=== PATIENT | male | born 1950 | race African-American/Black ===

== ENCOUNTER 2018-02-12 15:36 | Inpatient (IN) ==
[2018-02-12 17:00] LABS: Baso % (Auto) 0.5 % (0.0-2.0); Eos # (Auto) 0.1 th/mm3 (0.0-0.4); Eos % (Auto) 1.5 % (0.0-4.0); Hematocrit 46.1 % (39.0-51.0); Hemoglobin 15.5 gm/dL (13.0-17.0); Lymph # (Auto) 1.6 th/mm3 (1.0-4.8); Lymph % (Auto) 25.9 % (9.0-44.0); Mean Corpuscular HGB Conc 33.6 % (32.0-36.0); Mean Corpuscular Hemoglobin 31.2 pg (27.0-34.0); Mean Corpuscular Volume 92.9 fL (80.0-100.0); Mean Platelet Volume 8.2 fL (7.0-11.0); Mono # (Auto) 0.5 th/mm3 (0.0-0.9); Mono % (Auto) 7.8 % (0.0-8.0); Neut # (Auto) 3.9 th/mm3 (1.8-7.7); Neut % (Auto) 64.3 % (16.0-70.0); Platelet Count 242 th/mm3 (150-450); Red Blood Count 4.96 mil/mm3 (4.50-5.90); Red Cell Distribution Width 14.5 % (11.6-17.2); White Blood Count 6.1 th/mm3 (4.0-11.0)
[2018-02-12 17:11] LABS: Alanine Aminotransferase 21 U/L (12-78); Albumin 3.7 g/dL (3.4-5.0); Anion Gap 9 meq/L (5-15); Aspartate Aminotransferase 7 U/L (15-37); Blood Urea Nitrogen 14 mg/dL (7-18); Calcium 8.4 mg/dL (8.5-10.1); Carbon Dioxide 25.1 meq/L (21.0-32.0); Chloride 110 meq/L (98-107); Glomerular Filtration Rate 66 mL/min (>89); Glucose,Random 153 mg/dL (74-106); Potassium 3.9 meq/L (3.5-5.1); Sodium 144 meq/L (136-145)
[2018-02-12 17:14] LABS: Alkaline Phosphatase 97 U/L (45-117)
[2018-02-12 17:27] LABS: Creatine Kinase 76 U/L (39-308)
--- NOTE | 2018-02-12 17:39 | ED ---
HPI General Chief Complaint: Dizziness Stated Complaint: Dizzy/Blurred vision Time Seen by Provider: 02/12/18 17:20 Source: patient Mode of arrival: ambulatory Limitations: no limitations History of Present Illness HPI Narrative: The patient is a 67-year-old -[place] male who presents to the emergency department for dizziness. The patient complains of lightheadedness and dizziness that started on Tuesday, has been intermittent and associated with blurry vision. The patient wears glasses, last had his vision checked several months ago. The patient states his symptoms resolved on Tuesday , however, returned today. The patient feels lightheaded, dizzy, with blurry vision. The patient has difficulty focusing, initially thought it was his blood sugars, however, his blood sugars were in the 180s. The patient also feels off balance when he is ambulating. He denies any chest pain, shortness of breath, palpitations, nausea, vomiting, or focal deficits. The patient did have a stroke several months ago in [place] [facility] where his presenting symptom was dizziness. The patient was admitted at that time and subsequently had a loop recorder placed to evaluate for possible atrial fibrillation. Symptoms are moderate. There are no current alleviating factors. MD complaint: dizziness, lightheadedness and difficulty walking Onset (ago): day(s) Timing: waxing/waning Description: lightheadedness, off-balance and difficulty walking History of similar episodes: Yes History of trauma: No Severity: moderate Relieving factors: nothing Exacerbating factors: nothing Associated symptoms: ataxia and vision changes Related Data Home Medications Medication Instructions Recorded Confirmed Lantus U-100 Insulin 16 unit SUB-Q HS 02/12/18 02/12/18 Novolin 70/30 U-100 Insulin 6 unit SUB-Q ACHS 02/12/18 02/12/18 amlodipine 10 mg PO DAILY 02/12/18 02/12/18 aspirin 81 mg PO DAILY 02/12/18 02/12/18 atorvastatin 40 mg PO DAILY 02/12/18 02/12/18 carvedilol 25 mg PO BID 02/12/18 02/12/18 clopidogrel 75 mg PO DAILY 02/12/18 02/12/18 furosemide 40 mg PO DAILY 02/12/18 02/12/18 metformin 1,000 mg PO BID 02/12/18 02/12/18 sildenafil 100 mg PO WEEKLY 02/12/18 02/12/18 Allergies Allergy/AdvReac Type Severity Reaction Status Date / Time No Known Allergies Allergy Unverified 02/08/18 00:18 Review of Systems Except as stated in HPI: all other systems reviewed are negative Constitutional Denies fever(s) Eyes Reports blurry vision ENT Reports headache(s) Cardiovascular Denies chest pain, Denies diaphoresis, Denies rapid heart rate, Denies irregular heart rhythm and Reports lightheadedness Respiratory Denies chest congestion, Denies cough, Denies dyspnea and Denies dyspnea on exertion Gastrointestinal Denies abdominal pain, Denies nausea and Denies vomiting Musculoskeletal Denies muscle weakness Neurologic Denies vertigo, Reports dizziness, Reports headache(s) and Denies loss of vision Endocrine Reports other (History of diabetes on insulin) [facility] Medical History Medical History CHF (congestive heart failure) (Acute) COPD (chronic obstructive pulmonary disease) (Acute) Diabetes (Acute) HTN (hypertension) (Acute) Social History Social History Substance History: No History of Abuse Smoking Status: Unknown if ever smoked How Often Do You Have a Drink Containing Alcohol: 2 to 3 times a week Exam Narrative Exam Narrative: GENERAL: Awake, alert, very pleasant 67-year-old male who appears his stated age and is in no acute respiratory distress. SKIN: Focused skin assessment warm/dry. HEAD: Atraumatic. Normocephalic. EYES: Pupils equal and round. 4 mm bilateral and reactive. EOMs are intact. Patient is able to see fingers at a distance of 2 feet without difficulty. ENT: No nasal bleeding or discharge. Mucous membranes pink and moist. NECK: Trachea midline. No JVD. CARDIOVASCULAR: Regular rate and rhythm. No murmur appreciated. RESPIRATORY: No accessory muscle use. Clear to auscultation. Breath sounds equal bilaterally. GASTROINTESTINAL: Abdomen soft, non-tender, nondistended. Hepatic and splenic margins not palpable. MUSCULOSKELETAL: No obvious deformities. No clubbing. No cyanosis. No edema. NEUROLOGICAL: Awake and alert. No obvious cranial nerve deficits. Motor grossly within normal limits. Normal speech. No drift of the upper or lower extremities. Sensation is symmetric, legs, and face bilaterally. Finger to nose is normal. Heel to landon is normal. Patient is oriented 4 and follows commands without difficulty. EOMs are intact. Patient was ambulated, slightly leaning to the right. PSYCHIATRIC: Appropriate mood and affect; insight and judgment normal. Course Reevaluation(s) Reevaluation #1: The on-call medical service was paged for admission. I discussed the patient with Dr. Tucker who agrees with admission. Time: 19:05 Initial Documented Vital Signs Temperature 97.9 F 02/12/18 16:00 Pulse Rate 78 02/12/18 16:00 Respiratory Rate 17 02/12/18 16:00 Blood Pressure 180/84 H 02/12/18 16:00 Pulse Oximetry 98 02/12/18 16:00 Last Documented Vital Signs Temperature 97.9 F 02/12/18 16:00 Pulse Rate 67 02/12/18 19:48 Respiratory Rate 18 02/12/18 19:48 Blood Pressure 183/88 H 02/12/18 19:48 Pulse Oximetry 100 02/12/18 19:48 Medical Decision Making MDM Narrative Medical decision making narrative: IV was established, labs are drawn and sent, and the patient was placed on cardiac telemetry monitoring and continuous pulse oximetry monitoring. EKG was ordered and interpreted. Orthostatic vital signs were obtained. CT the brain and MRI of the brain were obtained. The patient's blood sugar was 181 per his report upon arrival. The patient had similar symptoms several months ago with dizziness and was ultimately diagnosed with a stroke. The patient once again has dizziness with blurry vision, has been intermittent since Tuesday. MRI is positive for cerebellar infarct, therefore, MRA of the head and carotids was obtained. CT the brain reveals evolving infarct, no hemorrhage. Therefore, patient was administered aspirin 325 mg orally. The patient will be admitted to the on-call medical service. Differential Diagnosis Differential Diagnosis: Differential diagnosis includes CVA, TIA, intracranial hemorrhage, complicated migraine, atypical seizure, hyperglycemia arrhythmia, orthostatic hypotension, symptomatic anemia. Lab Data Lab results reviewed: Yes I reviewed the patient's lab results. Lab results narrative: Mild elevation creatinine 1.31 Result diagrams: 02/12/18 16:20 02/12/18 16:20 Lab Results 02/12/18 02/12/18 02/12/18 Range/Units 16:20 16:20 16:20 WBC 6.1 (4.0-11.0) th/mm3 RBC 4.96 (4.50-5.90) mil/mm3 Hgb 15.5 (13.0-17.0) gm/dL Hct 46.1 (39.0-51.0) % MCV 92.9 (80.0-100.0) fL MCH 31.2 (27.0-34.0) pg MCHC 33.6 (32.0-36.0) % RDW 14.5 (11.6-17.2) % Plt Count 242 (150-450) th/mm3 MPV 8.2 (7.0-11.0) fL Neut % (Auto) 64.3 (16.0-70.0) % Lymph % (Auto) 25.9 (9.0-44.0) % Dewitt % (Auto) 7.8 (0.0-8.0) % Eos % (Auto) 1.5 (0.0-4.0) % Baso % (Auto) 0.5 (0.0-2.0) % Neut # (Auto) 3.9 (1.8-7.7) th/mm3 Lymph # (Auto) 1.6 (1.0-4.8) th/mm3 Dewitt # (Auto) 0.5 (0.0-0.9) th/mm3 Eos # (Auto) 0.1 (0.0-0.4) th/mm3 Baso # (Auto) 0.0 (0.0-0.2) th/mm3 WBC Differential . Differential Comment Auto diff final PT (9.8-11.6) sec INR Ratio Sodium 144 (136-145) meq/L Potassium 3.9 (3.5-5.1) meq/L Chloride 110 H (98-107) meq/L Carbon Dioxide 25.1 (21.0-32.0) meq/L Anion Gap 9 (5-15) meq/L BUN 14 (7-18) mg/dL Creatinine 1.31 H (0.60-1.30) mg/dL Estimated GFR 66 L (>89) mL/min Random Glucose 153 H (74-106) mg/dL Lactic Acid 1.7 (0.4-2.0) mmol/L Calcium 8.4 L (8.5-10.1) mg/dL Total Bilirubin 0.9 (0.2-1.0) mg/dL AST 7 L (15-37) U/L ALT 21 (12-78) U/L Alkaline Phosphatase 97 (45-117) U/L Ammonia (11-32) mcmol/L Total Creatine Kinase 76 (39-308) U/L Troponin I Less than 0.02 L (0.02-0.05) ng/mL Total Protein 7.0 (6.4-8.2) g/dL Albumin 3.7 (3.4-5.0) g/dL Urine Color (Yellw/Straw) Urine Clarity (Clear) Urine pH (5.0-8.5) Ur Specific Delmar (1.002-1.035) Urine Protein (Neg-Trace) mg/dL Urine Glucose (UA) (Negative) mg/dL Urine Ketones (Negative) mg/dL Urine Occult Blood (Negative) Urine Nitrate (Negative) Urine Bilirubin (Negative) Urine Urobilinogen (Less than 2) mg/dL Ur Leukocyte Esterase (Negative) Urine RBC (0-3) /hpf Urine WBC (0-5) /hpf Hyaline Casts (0-3) /lpf Urine Mucus (Occasional) /lpf Micro UA Comment Urine Culture Comments 02/12/18 02/12/18 02/12/18 Range/Units 16:20 16:20 18:45 WBC (4.0-11.0) th/mm3 RBC (4.50-5.90) mil/mm3 Hgb (13.0-17.0) gm/dL Hct (39.0-51.0) % MCV (80.0-100.0) fL MCH (27.0-34.0) pg MCHC (32.0-36.0) % RDW (11.6-17.2) % Plt Count (150-450) th/mm3 MPV (7.0-11.0) fL Neut % (Auto) (16.0-70.0) % Lymph % (Auto) (9.0-44.0) % Dewitt % (Auto) (0.0-8.0) % Eos % (Auto) (0.0-4.0) % Baso % (Auto) (0.0-2.0) % Neut # (Auto) (1.8-7.7) th/mm3 Lymph # (Auto) (1.0-4.8) th/mm3 Dewitt # (Auto) (0.0-0.9) th/mm3 Eos # (Auto) (0.0-0.4) th/mm3 Baso # (Auto) (0.0-0.2) th/mm3 WBC Differential Differential Comment PT 10.7 (9.8-11.6) sec INR 1.1 Ratio Sodium (136-145) meq/L Potassium (3.5-5.1) meq/L Chloride (98-107) meq/L Carbon Dioxide (21.0-32.0) meq/L Anion Gap (5-15) meq/L BUN (7-18) mg/dL Creatinine (0.60-1.30) mg/dL Estimated GFR (>89) mL/min Random Glucose (74-106) mg/dL Lactic Acid (0.4-2.0) mmol/L Calcium (8.5-10.1) mg/dL Total Bilirubin (0.2-1.0) mg/dL AST (15-37) U/L ALT (12-78) U/L Alkaline Phosphatase (45-117) U/L Ammonia 23 (11-32) mcmol/L Total Creatine Kinase (39-308) U/L Troponin I (0.02-0.05) ng/mL Total Protein (6.4-8.2) g/dL Albumin (3.4-5.0) g/dL Urine Color Radha (Yellw/Straw) Urine Clarity Hazy H (Clear) Urine pH 5.0 (5.0-8.5) Ur Specific Delmar 1.031 (1.002-1.035) Urine Protein 100 H (Neg-Trace) mg/dL Urine Glucose (UA) Negative (Negative) mg/dL Urine Ketones Negative (Negative) mg/dL Urine Occult Blood Small H (Negative) Urine Nitrate Negative (Negative) Urine Bilirubin Negative (Negative) Urine Urobilinogen 4 or greater (Less than 2) mg/dL Ur Leukocyte Esterase Negative (Negative) Urine RBC Less than 1 (0-3) /hpf Urine WBC 1 (0-5) /hpf Hyaline Casts 1 (0-3) /lpf Urine Mucus Few H (Occasional) /lpf Micro UA Comment Culture not ind Urine Culture Comments Culture not ind Imaging Data Radiologist's impression: ITS Impressions Head CT 02/12/18 17:30 CONCLUSION: 1. Multiple evolving infarcts as above without hemorrhage or significant mass effect. Head MRI 02/12/18 17:30 CONCLUSION: 1. Acute infarcts predominantly in the posterior circulation on the left side measuring up to about 4 cm in the left cerebellar hemisphere and 5 centimeters in the left occipital lobe with additional small punctate infarcts in the left periventricular deep white matter, posterior aspect of corpus callosum and right cerebellar hemisphere. Head MRA 02/12/18 18:13 CONCLUSION: 1. No flow identified in the distal right vertebral. 2. Atherosclerotic irregularity with diminished flow in the basilar artery and at least moderate stenosis of both posterior cerebral arteries. 3. Atherosclerotic changes suspected in the distal middle cerebral arteries bilaterally with mild to moderate stenosis suspected on the right and at least moderate stenosis on the left. No discrete aneurysm identified. Neck MRA 02/12/18 18:13 CONCLUSION: 1. Probable high-grade stenosis distal left vertebral artery. No flow seen in the distal right vertebral artery proximal to the basilar artery. Diminished flow in the basilar artery. Both carotid arteries are patent. Percent stenosis is calculated using the diameter of the stenotic region over the diameter of the normal distal internal carotid artery Discharge Plan Discharge Disposition Patient Disposition: 30 Still Patient Discharge Condition Condition: Stable Discharge Details Discharge Problem: Cerebrovascular accident, Vertebral basilar insufficiency Physicians Team ED Provider: Lars Coyne Primary Care Provider: [facility]ician [place] Attending Provider: Taylor Tucker Status ED Status: Admitted Patient
--- NOTE | 2018-02-12 18:21 | MR ---
EXAM DATE: 02/12/2018 6:12 PM EDT AGE/SEX: 67 years / Male INDICATIONS: Dizziness. Blurred vision. CLINICAL DATA: This is the patient's initial encounter. Patient reports that signs and symptoms have been present for 1 day and indicates a pain score of 0/10. MEDICAL/SURGICAL HISTORY: Hypertension. Diabetes mellitus type II. Chronic obstructive pulmon yusra disease. CHF. Total knee replacement, left. Total knee replacement, right. Loop recorder. COMPARISON: No prior exams available for comparison. TECHNIQUE: Multiplanar, multisequence examination of the brain was performed without contrast. FINDINGS: Multiple infarcts are present, predominantly in the posterior circulation on the left side. There is a left cerebellar hemispheric infarct which measures up to about 4 cm in maximal diameter. There is a left occipital lobe infarct measuring up to about 5 cm in maximal diameter. Also punctate infarct po sterior aspect of corpus callosum and in the left periventricular white matter. Small lacunar infarct right cerebellar hemisphere. Remote lacunar infarct right cerebellar hemisphere. Currently no mass e ffect or midline shift. No hydrocephalus. No abnormal extra-axial fluid collections present. CONCLUSION: 1. Acute infarcts predominantly in the posterior circulation on the left side measuring up to about 4 cm in the left cerebellar hemisphere and 5 centimeters in the left occipital lobe with additional s mall punctate infarcts in the left periventricular deep white matter, posterior aspect of corpus call osum and right cerebellar hemisphere. Electronically signed by: Gerardo Modi MD 02/12/2018 6:20 PM EDT
[2018-02-12] MEDS ORDERED: Gadodiamide PF Inj 287 MG/ML 20 ML Syringe (for RAD MRI) IVCONTRAST ONE (18:33)
--- NOTE | 2018-02-12 18:49 | CT ---
EXAM DATE: 02/12/2018 6:39 PM EDT AGE/SEX: 67 years / Male INDICATIONS: Dizziness with prior history of stroke. CLINICAL DATA: This is the patient's initial encounter. Patient reports that signs and symptoms have been present for 1 day and indicates a pain score of 0/10. MEDICAL/SURGICAL HISTORY: Cerebrovascular disease. Chronic obstructive pulmonary disease. Congest karo heart failure. Diabetes, Hypertension None. RADIATION DOSE: 51.02 CTDI (mGy) COMPARISON: No prior exams available for comparison. TECHNIQUE: CT of the head without contrast. Using automated exposure control and adjustment of the mA and/or kV according to patient size, radiation dose was kept as low as reasonably achievable to ob tain optimal diagnostic quality images. DICOM format image data is available electronically for revi ew and comparison. FINDINGS: There are evolving infarcts in the left occipital lobe measuring about 5 cm in diameter and left cere bellar hemisphere measuring up to diameter with additional punctate infarcts in the right cerebellar hemisphere and left periventricular white matter. Findings better visualized on recent MRI. There is no associated hemorrhage or significant mass effect. No hydrocephalus. CONCLUSION: 1. Multiple evolving infarcts as above without hemorrhage or significant mass effect. Electronically signed by: Gerardo Modi MD 02/12/2018 6:48 PM EDT
--- NOTE | 2018-02-12 19:01 | MR ---
EXAM DATE: 02/12/2018 6:54 PM EDT AGE/SEX: 67 years / Male INDICATIONS: Dizziness. CLINICAL DATA: This is the patient's initial encounter. Patient reports that signs and symptoms have been present for 2 days and indicates a pain score of 0/10. MEDICAL/SURGICAL HISTORY: Chronic obstructive pulmonary disease. Diabetes mellitus type II. H ypertension. loop recorder Total knee replacement, left. Total knee replacement, right. COMPARISON: [facility], MRA HEAD W/O CONTRAST, 02/12/2018. . TECHNIQUE: 20cc ml Omniscan (gadodiamide) contrast infused MRA (single exam dose) of the extracrani al circulation was performed using a neurovascular coil. Postprocessing was performed, including rot ating sub-volume maximum intensity projections of each carotid artery, rotating full-volume maximum i ntensity projections of both carotid arteries, sagittal and coronal sliding thin-slab reformations of each carotid artery, and left oblique sliding thin-slab reformation through the aortic arch to inclu de the origin of the arch branch vessels. FINDINGS: The great vessel origins are patent. Both common carotid arteries and both internal carotid arteries are patent. There appears to be a focal high-grade stenosis in the distal left vertebral artery the d istal right vertebral artery appears occluded. There is some flow noted in the basilar artery. CONCLUSION: 1. Probable high-grade stenosis distal left vertebral artery. No flow seen in the distal right verte bral artery proximal to the basilar artery. Diminished flow in the basilar artery. Both carotid arter ies are patent. Percent stenosis is calculated using the diameter of the stenotic region over the diameter of the nor mal distal internal carotid artery Electronically signed by: Gerardo Modi MD 02/12/2018 7:00 PM EDT
[2018-02-12] MEDS ORDERED: Aspirin 325 MG Tablet PO ONE (19:02)
[2018-02-12 19:04] LABS: INR 1.1 Ratio; Prothrombin Time 10.7 sec (9.8-11.6)
--- NOTE | 2018-02-12 19:04 | MR ---
EXAM DATE: 02/12/2018 6:50 PM EDT AGE/SEX: 67 years / Male INDICATIONS: Dizziness. CLINICAL DATA: This is the patient's initial encounter. Patient reports that signs and symptoms have been present for 2 days and indicates a pain score of 0/10. MEDICAL/SURGICAL HISTORY: Hypertension. Diabetes mellitus type II. Chronic obstructive pulmon yusra disease. CHF Total knee replacement, left. Total knee replacement, right. COMPARISON: No prior exams available for comparison. TECHNIQUE: 3D [id number] MRA was performed. Source images, multiplanar STS MIP, and 3D volum e MIP reconstructions were reviewed. FINDINGS: No flow is seen in the distal right vertebral artery. Left vertebral artery forms the basilar artery which demonstrates some atherosclerotic irregularity. There is diminished flow in both posterior cere bral arteries with at least moderate stenosis suspected. There is good flow within a single anterior cerebral artery. There is atherosclerotic irregularity of both distal middle cerebral arteries with at least moderate stenosis suspected. This is slightly wor se on the left side. Distal internal carotid arteries demonstrate mild atherosclerotic irregularity CONCLUSION: 1. No flow identified in the distal right vertebral. 2. Atherosclerotic irregularity with diminished flow in the basilar artery and at least moderate anca nosis of both posterior cerebral arteries. 3. Atherosclerotic changes suspected in the distal middle cerebral arteries bilaterally with mild to moderate stenosis suspected on the right and at least moderate stenosis on the left. No discrete ane urysm identified. Electronically signed by: Gerardo Modi MD 02/12/2018 7:03 PM EDT
[2018-02-12 19:46] LABS: Bilirubin,Urine Negative (Negative); Clarity,Urine Hazy (Clear); Color,Urine Amber (Yellw/Straw); Glucose,Urine (UA) Negative (Negative); Hyaline Casts,Urine 1 /lpf (0-3); Leukocyte Esterase,Urine Negative (Negative); Mucus,Urine Few /lpf (Occasional); Nitrite,Urine Negative (Negative); Specific Gravity,Urine 1.031 (1.002-1.035); Urobilinogen,Urine 4 or Greater mg/dL (Less than 2)
[2018-02-12] MEDS ORDERED: Dextrose 50% in Water 50 ML Vial IV.PUSH PRN (22:06)
[2018-02-12] MEDS ORDERED: Heparin - SQ 10,000 UNITS/ML Vial SQ SCH (22:15)
--- NOTE | 2018-02-12 22:39 | P.HP ---
History of Present Illness Service: [facility] Primary Care Physician: Physician [facility] Chief Complaint: Blurry vision History of Present Illness: 67-year-old male with a past medical history significant for previous CVA, hypertension, hyperlipidemia and diabetes mellitus presents to the emergency department for the evaluation of confusion and visual problems. The patient reports that yesterday he became confused having difficulty with his short-term memory. He also reports visual acuity issues where everything was blurry and bright. The patient also reports dizziness. He states his symptoms persisted to today and he came to the emergency department for further evaluation. The patient reports his visual symptoms have resolved at this time. He denies any chest pain or shortness of breath. No abdominal pain. No nausea/vomiting/ diarrhea. Walks to the right. No fevers/chills. Inpatient Certification: I certify that the inpatient services were ordered in accordance with Medicare regulations governing the order. This includes certification that hospital inpatient services are reasonable and necessary and in the case of services not specified as inpatient-only under 42 CFR 419.22(n), that they are appropriately provided as inpatient services in accordance to with the 2-midnight benchmark under 43 CFR 412.3(e) Estimated Total Length of Stay (Days): 4 Plans for Post Hospital Care: Not yet determined Review of Systems All other systems reviewed negative except as stated in HPI [facility] - History History Provided By: Patient - Medical History Medical History: Medical History (Last Updated 02/12/18 @ 22:31 by Taylor Tucker MD) HLD (hyperlipidemia) Status post placement of implantable loop recorder CHF (congestive heart failure) COPD (chronic obstructive pulmonary disease) Diabetes HTN (hypertension) - Surgical History Surgical History: Surgical History (Last Updated 02/12/18 @ 22:31 by Taylor Tucker MD) H/O knee surgery - Family History Family History: Family History (Last Updated 02/12/18 @ 22:32 by Taylor Tucker MD) Other Diabetes - Tobacco History Second Hand Smoke Exposure: No Tobacco Use In Past 30 Days: No Smoking Status: Unknown if ever smoked - Alcohol History How Often Do You Have a Drink Containing Alcohol: 2 to 3 times a week - Substance Use History Substance History: No History of Abuse - Immunization History Tetanus Immunization: Unsure Medications and Allergies Active Medications: Active Medications Amlodipine Besylate (Norvasc) 10 mg PO DAILY [facility] Aspirin (Aspirin) 325 mg PO DAILY [facility] Atorvastatin Calcium (Lipitor) 40 mg PO DAILY [facility] Clopidogrel Bisulfate (Plavix) 75 mg PO DAILY [facility] Dextrose (D50w Vial) 50 ml IV.PUSH UNSCH PRN PRN Reason: PER HYPOGLYCEMIA PROTOCOL Furosemide (Lasix) 40 mg PO DAILY [facility] Glucagon (Glucagon Inj) 1 mg OTHER UNSCH PRN PRN Reason: for Hypoglycemia Protocol Heparin Sodium (Porcine) (Heparin Inj) 5,000 units SQ Q12H [facility] Sodium Chloride (Ns Inj) 1,000 mls @ 70 mls/hr IV.CONT .[id number] [facility] Insulin Aspart (Novolog Insulin Suppl Scale Inj) 0 unit SQ ACHS [facility]; Protocol Non-Formulary Medication (Carvedilol [Carvedilol]) 25 mg PO BID [facility] Sodium Chloride (Ns Flush) 2 ml IV.FLUSH PRN PRN PRN Reason: FLUSH AFTER USING IV ACCESS Sodium Chloride (Ns Flush) 2 ml IV.FLUSH BID [facility] Sodium Chloride (Ns Flush) 2 ml IV.FLUSH PRN PRN PRN Reason: FLUSH AFTER USING IV ACCESS Allergies Allergy/AdvReac Type Severity Reaction Status Date / Time No Known Allergies Allergy Unverified 02/08/18 00:18 Home Medications Medication Instructions Recorded Confirmed Type Lantus U-100 Insulin 16 unit SUB-Q HS 02/12/18 02/12/18 History Novolin 70/30 U-100 Insulin 6 unit SUB-Q ACHS 02/12/18 02/12/18 History amlodipine 10 mg PO DAILY 02/12/18 02/12/18 History aspirin 81 mg PO DAILY 02/12/18 02/12/18 History atorvastatin 40 mg PO DAILY 02/12/18 02/12/18 History carvedilol 25 mg PO BID 02/12/18 02/12/18 History clopidogrel 75 mg PO DAILY 02/12/18 02/12/18 History furosemide 40 mg PO DAILY 02/12/18 02/12/18 History metformin 1,000 mg PO BID 02/12/18 02/12/18 History sildenafil 100 mg PO WEEKLY 02/12/18 02/12/18 History Exam Vital signs: Vital Signs 02/12/18 16:00 02/12/18 16:05 02/12/18 18:57 Temperature 97.9 F Pulse Rate 78 73 78 Respiratory Rate 17 18 Blood Pressure 180/84 H 169/87 H Pulse Oximetry 98 100 02/12/18 19:48 Temperature Pulse Rate 67 Respiratory Rate 18 Blood Pressure 183/88 H Pulse Oximetry 100 Intake & Output 02/12/18 02/12/18 02/13/18 06:59 18:59 06:59 Weight 115.666 kg Narrative: Gen.: No acute distress Head: Normocephalic. Atraumatic. EENT: Pupils equal round and reactive to light. Nose without drainage. Airway intact. Throat without injection. Cardiovascular: Regular rate and rhythm. No murmurs, rubs or gallops. Respiratory: Lungs clear to auscultation bilaterally. No wheezes or rhonchi. Abdomen: Soft, nontender, nondistended. No peritoneal signs. Musculoskeletal: No gross deformities. No edema. Skin: No obvious rashes or erythema. Neuro: Cranial nerves II through XII intact. Patient denies any blurry vision at this time. 5/5 strength in all extremities. Psych: Appropriate mood and affect Results - Labs CBC & Chem 7: 02/12/18 16:20 02/12/18 16:20 Labs: Laboratory Results - last 24 hr 02/12/18 02/12/18 02/12/18 16:20 16:20 16:20 WBC 6.1 RBC 4.96 Hgb 15.5 Hct 46.1 MCV 92.9 MCH 31.2 MCHC 33.6 RDW 14.5 Plt Count 242 MPV 8.2 Neut % (Auto) 64.3 Lymph % (Auto) 25.9 [place] % (Auto) 7.8 Eos % (Auto) 1.5 Baso % (Auto) 0.5 Neut # (Auto) 3.9 Lymph # (Auto) 1.6 [place] # (Auto) 0.5 Eos # (Auto) 0.1 Baso # (Auto) 0.0 WBC Differential . Differential Comment Auto diff final PT INR Sodium 144 Potassium 3.9 Chloride 110 H Carbon Dioxide 25.1 Anion Gap 9 BUN 14 Creatinine 1.31 H Estimated GFR 66 L Random Glucose 153 H Lactic Acid 1.7 Calcium 8.4 L Total Bilirubin 0.9 AST 7 L ALT 21 Alkaline Phosphatase 97 Ammonia Total Creatine Kinase 76 Troponin I Less than 0.02 L Total Protein 7.0 Albumin 3.7 Urine Color Urine Clarity Urine pH Ur Specific [place] Urine Protein Urine Glucose (UA) Urine Ketones Urine Occult Blood Urine Nitrate Urine Bilirubin Urine Urobilinogen Ur Leukocyte Esterase Urine RBC Urine WBC Hyaline Casts Urine Mucus Micro UA Comment Urine Culture Comments 02/12/18 02/12/18 02/12/18 16:20 16:20 18:45 WBC RBC Hgb Hct MCV MCH MCHC RDW Plt Count MPV Neut % (Auto) Lymph % (Auto) [place] % (Auto) Eos % (Auto) Baso % (Auto) Neut # (Auto) Lymph # (Auto) [place] # (Auto) Eos # (Auto) Baso # (Auto) WBC Differential Differential Comment PT 10.7 INR 1.1 Sodium Potassium Chloride Carbon Dioxide Anion Gap BUN Creatinine Estimated GFR Random Glucose Lactic Acid Calcium Total Bilirubin AST ALT Alkaline Phosphatase Ammonia 23 Total Creatine Kinase Troponin I Total Protein Albumin Urine Color Radha Urine Clarity Hazy H Urine pH 5.0 Ur Specific [place] 1.031 Urine Protein 100 H Urine Glucose (UA) Negative Urine Ketones Negative Urine Occult Blood Small H Urine Nitrate Negative Urine Bilirubin Negative Urine Urobilinogen 4 or greater Ur Leukocyte Esterase Negative Urine RBC Less than 1 Urine WBC 1 Hyaline Casts 1 Urine Mucus Few H Micro UA Comment Culture not ind Urine Culture Comments Culture not ind - Imaging Impressions Head CT 02/12/18 17:30 CONCLUSION: 1. Multiple evolving infarcts as above without hemorrhage or significant mass effect. Head MRI 02/12/18 17:30 CONCLUSION: 1. Acute infarcts predominantly in the posterior circulation on the left side measuring up to about 4 cm in the left cerebellar hemisphere and 5 centimeters in the left occipital lobe with additional small punctate infarcts in the left periventricular deep white matter, posterior aspect of corpus callosum and right cerebellar hemisphere. Head MRA 02/12/18 18:13 CONCLUSION: 1. No flow identified in the distal right vertebral. 2. Atherosclerotic irregularity with diminished flow in the basilar artery and at least moderate stenosis of both posterior cerebral arteries. 3. Atherosclerotic changes suspected in the distal middle cerebral arteries bilaterally with mild to moderate stenosis suspected on the right and at least moderate stenosis on the left. No discrete aneurysm identified. Neck MRA 02/12/18 18:13 CONCLUSION: 1. Probable high-grade stenosis distal left vertebral artery. No flow seen in the distal right vertebral artery proximal to the basilar artery. Diminished flow in the basilar artery. Both carotid arteries are patent. Percent stenosis is calculated using the diameter of the stenotic region over the diameter of the normal distal internal carotid artery Caprini VTE Risk Assessment Caprini VTE Risk Assessment: Moderate/High Risk (score >= 2) Neilrini Risk Assessment Model: Point Value = 1 Point Value = 2 Point Value = 3 Point Value = 5 Age 41-60 Minor surgery BMI > 25 kg/m2 Swollen legs Varicose veins or History of unexplained or recurrent spontaneous Oral contraceptives or hormone replacement Sepsis (< 1 month) Serious lung disease, including pneumonia (< 1 month) Abnormal pulmonary function Acute myocardial infarction Congestive heart failure (< 1 month) History of inflammatory bowel disease Medical patient at bed rest Age 61-74 Arthroscopic surgery Major open surgery (> 45 min) Laparoscopic surgery (> 45 min) Malignancy Confined to bed (> 72 hours) Immobilizing plaster cast Central venous access Age >= 75 History of VTE Family history of VTE Factor V Leiden Prothrombin [id number] Lupus anticoagulant Anticardiolipin antibodies Elevated serum homocysteine Heparin-induced thrombocytopenia Other congenital or acquired thrombophilia Stroke (< 1 month) Elective arthroplasty Hip, pelvis, or leg fracture Acute spinal cord injury (< 1 month) Prophylaxis Regimen: Total Risk Factor Score Risk Level Prophylaxis Regimen 0-1 Low Early ambulation 2 Moderate Order ONE of the following: *Sequential Compression Device (SCD) *Heparin 5000 units SQ BID 3-4 Higher Order ONE of the following medications: *Heparin 5000 units SQ TID *Enoxaparin/Lovenox 40 mg SQ daily (WT < 150 kg, CrCl > 30 mL/min) *Enoxaparin/Lovenox 30 mg SQ daily (WT < 150 kg, CrCl > 10-29 mL/min) *Enoxaparin/Lovenox 30 mg SQ BID (WT < 150 kg, CrCl > 30 mL/min) AND/OR *Sequential Compression Device (SCD) 5 or more Highest Order ONE of the following medications: *Heparin 5000 units SQ TID (Preferred with Epidurals) *Enoxaparin/Lovenox 40 mg SQ daily (WT < 150 kg, CrCl > 30 mL/min) *Enoxaparin/Lovenox 30 mg SQ daily (WT < 150 kg, CrCl > 10-29 mL/min) *Enoxaparin/Lovenox 30 mg SQ BID (WT < 150 kg, CrCl > 30 mL/min) AND *Sequential Compression Device (SCD) Assessment and Plan - Plan Assessment/plan: 1. Posterior CVA with history of CVA MRI showed acute infarct in the posterior circulation on the left side and left cerebellar hemisphere and left occipital lobe MRA showed no flow identified in the distal right vertebral artery with atherosclerotic changes Aspirin/Plavix Neurology consulted, appreciate assistance 2. Diabetes mellitus Sliding-scale insulin Monitor blood glucose Resume home long-acting insulin once patient taking p.o. 3. Hypertension/hyperlipidemia Continue home medications FEN N.p.o. Electrolytes: Monitor and replete as needed NS at 70 cc/hour Heparin
[2018-02-13] MEDS: Sod Chloride 0.9% Inj 1,000 ML IV.CONT SCH ×2 (00:09→13:55)
[2018-02-13] MEDS: Aspirin 325 MG Tablet PO SCH (08:15)
[2018-02-13] MEDS: amLODIPine 10 MG Tablet PO SCH (08:15)
[2018-02-13] MEDS: Furosemide 20 MG Tablet PO SCH (08:16)
[2018-02-13 09:17] LABS: Chol/HDL Ratio 3.64 Ratio; HDL Cholesterol 49.6 mg/dL (40.0-60.0)
--- NOTE | 2018-02-13 09:33 | ECG ---
Date Performed: 02/12/2018 Time Performed: 16:27:59 PTAGE: 67 years EKG: Sinus rhythm WITH FIRST DEGREE AV BLOCK LEFT ATRIAL ENLARGEMENT LEFT BUNDLE BRANCH BLOCK ABNORMAL ECG NO PREVIOUS TRACING DOCTOR: Domo Means Interpretating Date/Time 02/13/2018 09:31:31
--- NOTE | 2018-02-13 10:27 | P.CONNEU ---
History of Present Illness Service: Neurology Consult date: 02/13/18 Requesting Physician: Taylor Tucker Reason for Consult: CVA Primary Care Provider: [facility] Chief Complaint: Blurry vision History of Present Illness: 67 y/o male with hx of CVA (10/08/17), HTN, hyperlipidemia, and DM presented to the hospital with complaints of changes in vision and dizziness. He reports the dizziness was more of a lightheaded feeling. The changes in vision were blurred and then also flashing, bright lights in the periphery. No loss of vision. No loss of consciousness. No hx of seizure. No hx of A-fib. He had been taking ASA and Plavix at home and denies missing any doses. He is on Atorvastatin at home for his cholesterol. [facility] He does not have a local neurologist, he had been seen in [place] for his previous stroke. He denies any weakness or sensory changes. No headache. No incoordination. Review of Systems All other systems reviewed negative except as stated in HPI Neurologic: Reports dizziness, Reports other visual disturbances PMFSH - History History Provided By: Patient - Medical History Medical History: Medical History (Last Reviewed 02/13/18 @ 08:38 by Dorys Melgar) HLD (hyperlipidemia) Status post placement of implantable loop recorder CHF (congestive heart failure) COPD (chronic obstructive pulmonary disease) Diabetes HTN (hypertension) - Surgical History Surgical History: Surgical History (Last Reviewed 02/13/18 @ 08:38 by Dorys Melgar) H/O knee surgery - Family History Family History: Family History (Last Updated 02/12/18 @ 22:32 by Taylor Tucker MD) Other Diabetes - Tobacco History Second Hand Smoke Exposure: No Tobacco Use In Past 30 Days: No Smoking Status: Never smoker - Alcohol History How Often Do You Have a Drink Containing Alcohol: 2 to 3 times a week - Substance Use History Substance History: No History of Abuse - Immunization History Tetanus Immunization: Unsure Medications and Allergies Allergies Allergy/AdvReac Type Severity Reaction Status Date / Time No Known Allergies Allergy Unverified 02/08/18 00:18 Home Medications Medication Instructions Recorded Confirmed Type Lantus U-100 Insulin 16 unit SUB-Q HS 02/12/18 02/12/18 History Novolin 70/30 U-100 Insulin 6 unit SUB-Q ACHS 02/12/18 02/12/18 History amlodipine 10 mg PO DAILY 02/12/18 02/12/18 History aspirin 81 mg PO DAILY 02/12/18 02/12/18 History atorvastatin 40 mg PO DAILY 02/12/18 02/12/18 History carvedilol 25 mg PO BID 02/12/18 02/12/18 History clopidogrel 75 mg PO DAILY 02/12/18 02/12/18 History furosemide 40 mg PO DAILY 02/12/18 02/12/18 History metformin 1,000 mg PO BID 02/12/18 02/12/18 History sildenafil 100 mg PO WEEKLY 02/12/18 02/12/18 History Active Medications: Active Medications Amlodipine Besylate (Norvasc) 10 mg PO DAILY [facility] Last Admin: 02/13/18 08:15 Dose: 10 mg Aspirin (Aspirin) 325 mg PO DAILY [facility] Last Admin: 02/13/18 08:15 Dose: 325 mg Atorvastatin Calcium (Lipitor) 40 mg PO DAILY [facility] Last Admin: 02/13/18 08:16 Dose: 40 mg Clopidogrel Bisulfate (Plavix) 75 mg PO DAILY [facility] Last Admin: 02/13/18 08:15 Dose: 75 mg Dextrose (D50w Vial) 50 ml IV.PUSH UNSCH PRN PRN Reason: PER HYPOGLYCEMIA PROTOCOL Enalaprilat (Vasotec Inj) 1.25 mg IV.PUSH Q4H PRN PRN Reason: For SBP > 220 or DBP > 120 Enalaprilat (Vasotec Inj) 1.25 mg IV.PUSH Q6H PRN PRN Reason: SBP>200, DBP>100 Furosemide (Lasix) 40 mg PO DAILY [facility] Last Admin: 02/13/18 08:16 Dose: 40 mg Glucagon (Glucagon Inj) 1 mg OTHER UNSCH PRN PRN Reason: for Hypoglycemia Protocol Heparin Sodium (Porcine) (Heparin Inj) 5,000 units SQ Q12H [facility] Last Admin: 02/13/18 00:09 Dose: 5,000 units Sodium Chloride (Ns Inj) 1,000 mls @ 70 mls/hr IV.CONT .[id number] [facility] Last Admin: 02/13/18 00:09 Dose: 70 mls/hr Insulin Aspart (Novolog Insulin Suppl Scale Inj) 0 unit SQ [facility]; Protocol Non-Formulary Medication (Carvedilol [Carvedilol]) 25 mg PO BID [facility] Sodium Chloride (Ns Flush) 2 ml IV.FLUSH BID [facility] Last Admin: 02/13/18 08:16 Dose: Not Given Sodium Chloride (Ns Flush) 2 ml IV.FLUSH PRN PRN PRN Reason: FLUSH AFTER USING IV ACCESS Exam Vital signs: Vital Signs 02/12/18 16:00 02/12/18 16:05 02/12/18 18:57 Temperature 97.9 F Pulse Rate 78 73 78 Respiratory Rate 17 18 Blood Pressure 180/84 H 169/87 H Pulse Oximetry 98 100 02/12/18 19:48 02/13/18 00:00 02/13/18 04:00 Temperature 97.4 F L 97.9 F Pulse Rate 67 62 76 Respiratory Rate 18 16 18 Blood Pressure 183/88 H 211/118 H 214/105 H Pulse Oximetry 100 98 98 02/13/18 08:00 02/13/18 09:47 Temperature 98.2 F Pulse Rate 80 Respiratory Rate 17 Blood Pressure 192/111 H 152/100 H Pulse Oximetry 97 Intake & Output 02/12/18 02/13/18 02/13/18 18:59 06:59 18:59 Output Total 350 / 350 Balance -350 / -350 Weight 115.666 kg Output: Urine 350 / 350 Other: Date of Last Bowel Movement 02/11/18 - Constitutional no acute distress, obese - Routine Neurological Exam alert and orient x 3 CN II-XII intact, VFF, EOMi, PERRL, no facial asymmetry strength: 5/5 upper and lower, tone normal, no focal deficit or drift sensory: absent vibration reflexes: 1+, toes downgoing cerebellar: f-n-f intact coordination: intact gait: deferred speech: normal, not slurred Results - Labs CBC & Chem 7: 02/12/18 16:20 02/12/18 16:20 Labs: Laboratory Results - last 24 hr 02/12/18 02/12/18 02/12/18 16:20 16:20 16:20 WBC 6.1 RBC 4.96 Hgb 15.5 Hct 46.1 MCV 92.9 MCH 31.2 MCHC 33.6 RDW 14.5 Plt Count 242 MPV 8.2 Neut % (Auto) 64.3 Lymph % (Auto) 25.9 [place] % (Auto) 7.8 Eos % (Auto) 1.5 Baso % (Auto) 0.5 Neut # (Auto) 3.9 Lymph # (Auto) 1.6 [place] # (Auto) 0.5 Eos # (Auto) 0.1 Baso # (Auto) 0.0 WBC Differential . Differential Comment Auto diff final PT INR Sodium 144 Potassium 3.9 Chloride 110 H Carbon Dioxide 25.1 Anion Gap 9 BUN 14 Creatinine 1.31 H Estimated GFR 66 L POC Glucose Random Glucose 153 H Lactic Acid 1.7 Calcium 8.4 L Total Bilirubin 0.9 AST 7 L ALT 21 Alkaline Phosphatase 97 Ammonia Total Creatine Kinase 76 Troponin I Less than 0.02 L Total Protein 7.0 Albumin 3.7 Triglycerides Cholesterol LDL Cholesterol, Calc HDL Cholesterol Cholesterol/HDL Ratio Urine Color Urine Clarity Urine pH Ur Specific [place] Urine Protein Urine Glucose (UA) Urine Ketones Urine Occult Blood Urine Nitrate Urine Bilirubin Urine Urobilinogen Ur Leukocyte Esterase Urine RBC Urine WBC Hyaline Casts Urine Mucus Micro UA Comment Urine Culture Comments 02/12/18 02/12/18 02/12/18 16:20 16:20 18:45 WBC RBC Hgb Hct MCV MCH MCHC RDW Plt Count MPV Neut % (Auto) Lymph % (Auto) [place] % (Auto) Eos % (Auto) Baso % (Auto) Neut # (Auto) Lymph # (Auto) [place] # (Auto) Eos # (Auto) Baso # (Auto) WBC Differential Differential Comment PT 10.7 INR 1.1 Sodium Potassium Chloride Carbon Dioxide Anion Gap BUN Creatinine Estimated GFR POC Glucose Random Glucose Lactic Acid Calcium Total Bilirubin AST ALT Alkaline Phosphatase Ammonia 23 Total Creatine Kinase Troponin I Total Protein Albumin Triglycerides Cholesterol LDL Cholesterol, Calc HDL Cholesterol Cholesterol/HDL Ratio Urine Color Radha Urine Clarity Hazy H Urine pH 5.0 Ur Specific [place] 1.031 Urine Protein 100 H Urine Glucose (UA) Negative Urine Ketones Negative Urine Occult Blood Small H Urine Nitrate Negative Urine Bilirubin Negative Urine Urobilinogen 4 or greater Ur Leukocyte Esterase Negative Urine RBC Less than 1 Urine WBC 1 Hyaline Casts 1 Urine Mucus Few H Micro UA Comment Culture not ind Urine Culture Comments Culture not ind 02/13/18 02/13/18 07:03 08:24 WBC RBC Hgb Hct MCV MCH MCHC RDW Plt Count MPV Neut % (Auto) Lymph % (Auto) [place] % (Auto) Eos % (Auto) Baso % (Auto) Neut # (Auto) Lymph # (Auto) [place] # (Auto) Eos # (Auto) Baso # (Auto) WBC Differential Differential Comment PT INR Sodium Potassium Chloride Carbon Dioxide Anion Gap BUN Creatinine Estimated GFR POC Glucose 157 H Random Glucose Lactic Acid Calcium Total Bilirubin AST ALT Alkaline Phosphatase Ammonia Total Creatine Kinase Troponin I Total Protein Albumin Triglycerides 112 Cholesterol 181 LDL Cholesterol, Calc 109 H HDL Cholesterol 49.6 Cholesterol/HDL Ratio 3.64 Urine Color Urine Clarity Urine pH Ur Specific [place] Urine Protein Urine Glucose (UA) Urine Ketones Urine Occult Blood Urine Nitrate Urine Bilirubin Urine Urobilinogen Ur Leukocyte Esterase Urine RBC Urine WBC Hyaline Casts Urine Mucus Micro UA Comment Urine Culture Comments - Imaging Impressions Head CT 02/12/18 17:30 CONCLUSION: 1. Multiple evolving infarcts as above without hemorrhage or significant mass effect. Head MRI 02/12/18 17:30 CONCLUSION: 1. Acute infarcts predominantly in the posterior circulation on the left side measuring up to about 4 cm in the left cerebellar hemisphere and 5 centimeters in the left occipital lobe with additional small punctate infarcts in the left periventricular deep white matter, posterior aspect of corpus callosum and right cerebellar hemisphere. Head MRA 02/12/18 18:13 CONCLUSION: 1. No flow identified in the distal right vertebral. 2. Atherosclerotic irregularity with diminished flow in the basilar artery and at least moderate stenosis of both posterior cerebral arteries. 3. Atherosclerotic changes suspected in the distal middle cerebral arteries bilaterally with mild to moderate stenosis suspected on the right and at least moderate stenosis on the left. No discrete aneurysm identified. Neck MRA 02/12/18 18:13 CONCLUSION: 1. Probable high-grade stenosis distal left vertebral artery. No flow seen in the distal right vertebral artery proximal to the basilar artery. Diminished flow in the basilar artery. Both carotid arteries are patent. Percent stenosis is calculated using the diameter of the stenotic region over the diameter of the normal distal internal carotid artery Review/Management - Review/Management Plan: Pt was on ASA and Plavix at home would recommend Eliquis if no contraindications has LOOP recorder ECHO pending continue telemetry goal LDL <70, currently LDL is 109 will work to slowly lower BP goal outpt is <120/80 would likely benefit from outpt evaluation for DANYEL work with therapy Addendum pt seen and d/w PA agree on above tx/plan given the fact that he had a stroke on asa and plavix AC should be initiated such as eliquis 5mg bid also loop interogated.
[2018-02-13] MEDS: Insulin NovoLOG Aspart Correctional Sugar Inj SQ SCH ×4 (10:42→21:09)
--- NOTE | 2018-02-13 12:34 | P.PNIM ---
Subjective Interval history: Follow up CVA. Patient seen and examined, sitting in chair comfortably no apparent distress. No residual weakness on either right or left side. Patient does admit to continued mild blurriness in bilateral eyes. Has been eating well with no difficulty swallowing, no abdominal pain, nausea or vomiting. Appreciate neurology note. Will discontinue Plavix continue aspirin and start on Eliquis. Patient indicated and all questions answered. Vital signs stable. Allow permissive hypertension, will attempt to control slowly. Physical Exam Vital signs: Vital Signs 02/12/18 16:00 02/12/18 16:05 02/12/18 18:57 Temperature 97.9 F Pulse Rate 78 73 78 Respiratory Rate 17 18 Blood Pressure 180/84 H 169/87 H Pulse Oximetry 98 100 02/12/18 19:48 02/13/18 00:00 02/13/18 04:00 Temperature 97.4 F L 97.9 F Pulse Rate 67 62 76 Respiratory Rate 18 16 18 Blood Pressure 183/88 H 211/118 H 214/105 H Pulse Oximetry 100 98 98 02/13/18 08:00 02/13/18 09:47 02/13/18 11:22 Temperature 98.2 F Pulse Rate 80 Respiratory Rate 17 Blood Pressure 192/111 H 152/100 H Pulse Oximetry 97 97 Intake & Output 02/12/18 02/13/18 02/13/18 18:59 06:59 18:59 Output Total 350 / 350 Balance -350 / -350 Weight 115.666 kg Output: Urine 350 / 350 Other: Date of Last Bowel Movement 02/11/18 Narrative: GENERAL: Well-developed, well-nourished patient in [facility]. SKIN: Warm and dry. No rash. HEAD: Normocephalic. Atraumatic. EYES: Pupils equal and round. No scleral icterus. No injection or drainage. ENT: No nasal bleeding or discharge. Mucous membranes pink and moist. NECK: Supple. Trachea midline. CARDIOVASCULAR: Regular rate and rhythm. S1, S2 noted. No murmur appreciated. RESPIRATORY: No accessory muscle use. Clear to auscultation. Breath sounds equal bilaterally. GASTROINTESTINAL: Abdomen soft, non-tender, nondistended. Normoactive bowel sounds x4. MUSCULOSKELETAL: No obvious deformities. Extremities without clubbing, cyanosis , or edema. NEUROLOGICAL: Awake and alert. - Constitutional no acute distress - Routine HEENT Exam Head: Present: normocephalic Eye: Present: EOMI, PERRL ENT: Present: mucous membranes moist - Routine Neck Exam Present: supple, full ROM - Routine Cardiovascular Exam Present: RRR, S1, S2 - Routine Abdominal Exam Present: soft - Routine Skin Exam Present: intact - Routine Neurological Exam Present: alert, oriented X3 - Detailed Neurological Exam: Coma Scale Eye Opening: Spontaneous Verbal Response: Oriented Motor Response: Obey commands Kimberly Coma Scale Total: 15 - Routine Psychiatric Exam Present: normal affect Results - Labs CBC & Chem 7: 02/12/18 16:20 02/12/18 16:20 Laboratory Results - last 24 hr 02/12/18 02/12/18 02/12/18 16:20 16:20 16:20 WBC 6.1 RBC 4.96 Hgb 15.5 Hct 46.1 MCV 92.9 MCH 31.2 MCHC 33.6 RDW 14.5 Plt Count 242 MPV 8.2 Neut % (Auto) 64.3 Lymph % (Auto) 25.9 [place] % (Auto) 7.8 Eos % (Auto) 1.5 Baso % (Auto) 0.5 Neut # (Auto) 3.9 Lymph # (Auto) 1.6 [place] # (Auto) 0.5 Eos # (Auto) 0.1 Baso # (Auto) 0.0 WBC Differential . Differential Comment Auto diff final PT INR Sodium 144 Potassium 3.9 Chloride 110 H Carbon Dioxide 25.1 Anion Gap 9 BUN 14 Creatinine 1.31 H Estimated GFR 66 L POC Glucose Random Glucose 153 H Lactic Acid 1.7 Calcium 8.4 L Total Bilirubin 0.9 AST 7 L ALT 21 Alkaline Phosphatase 97 [place]mon[place] Total Creatine Kinase 76 Troponin I Less than 0.02 L Total Protein 7.0 Albumin 3.7 Triglycerides Cholesterol LDL Cholesterol, Calc HDL Cholesterol Cholesterol/HDL Ratio Urine Color Urine Clarity Urine pH Ur Specific [place] Urine Protein Urine Glucose (UA) Urine Ketones Urine Occult Blood Urine Nitrate Urine Bilirubin Urine Urobilinogen Ur Leukocyte Esterase Urine RBC Urine WBC Hyaline Casts Urine Mucus Micro UA Comment Urine Culture Comments 02/12/18 02/12/18 02/12/18 16:20 16:20 18:45 WBC RBC Hgb Hct MCV MCH MCHC RDW Plt Count MPV Neut % (Auto) Lymph % (Auto) [place] % (Auto) Eos % (Auto) Baso % (Auto) Neut # (Auto) Lymph # (Auto) [place] # (Auto) Eos # (Auto) Baso # (Auto) WBC Differential Differential Comment PT 10.7 INR 1.1 Sodium Potassium Chloride Carbon Dioxide Anion Gap BUN Creatinine Estimated GFR POC Glucose Random Glucose Lactic Acid Calcium Total Bilirubin AST ALT Alkaline Phosphatase Ammonia 23 Total Creatine Kinase Troponin I Total Protein Albumin Triglycerides Cholesterol LDL Cholesterol, Calc HDL Cholesterol Cholesterol/HDL Ratio Urine Color [place]ha Urine Clarity Hazy H Urine pH 5.0 Ur Specific [place] 1.031 Urine Protein 100 H Urine Glucose (UA) Negative Urine Ketones Negative Urine Occult Blood Small H Urine Nitrate Negative Urine Bilirubin Negative Urine Urobilinogen 4 or greater Ur Leukocyte Esterase Negative Urine RBC Less than 1 Urine WBC 1 Hyaline Casts 1 Urine Mucus Few H Micro UA Comment Culture not ind Urine Culture Comments Culture not ind 02/13/18 02/13/18 02/13/18 07:03 08:24 11:52 WBC RBC Hgb Hct MCV MCH MCHC RDW Plt Count MPV Neut % (Auto) Lymph % (Auto) [place] % (Auto) Eos % (Auto) Baso % (Auto) Neut # (Auto) Lymph # (Auto) [place] # (Auto) Eos # (Auto) Baso # (Auto) WBC Differential Differential Comment PT INR Sodium Potassium Chloride Carbon Dioxide Anion Gap BUN Creatinine Estimated GFR POC Glucose 157 H 149 H Random Glucose Lactic Acid Calcium Total Bilirubin AST ALT Alkaline Phosphatase [place] Total Creatine Kinase Troponin I Total Protein Albumin Triglycerides 112 Cholesterol 181 LDL Cholesterol, Calc 109 H HDL Cholesterol 49.6 Cholesterol/HDL Ratio 3.64 Urine Color Urine Clarity Urine pH Ur Specific [place] Urine Protein Urine Glucose (UA) Urine Ketones Urine Occult Blood Urine Nitrate Urine Bilirubin Urine Urobilinogen Ur Leukocyte Esterase Urine RBC Urine WBC Hyaline Casts Urine Mucus Micro UA Comment Urine Culture Comments - Imaging Impressions Head CT 02/12/18 17:30 CONCLUSION: 1. Multiple evolving infarcts as above without hemorrhage or significant mass effect. Head MRI 02/12/18 17:30 CONCLUSION: 1. Acute infarcts predominantly in the posterior circulation on the left side measuring up to about 4 cm in the left cerebellar hemisphere and 5 centimeters in the left occipital lobe with additional small punctate infarcts in the left periventricular deep white matter, posterior aspect of corpus callosum and right cerebellar hemisphere. Head MRA 02/12/18 18:13 CONCLUSION: 1. No flow identified in the distal right vertebral. 2. Atherosclerotic irregularity with diminished flow in the basilar artery and at least moderate stenosis of both posterior cerebral arteries. 3. Atherosclerotic changes suspected in the distal middle cerebral arteries bilaterally with mild to moderate stenosis suspected on the right and at least moderate stenosis on the left. No discrete aneurysm identified. Neck MRA 02/12/18 18:13 CONCLUSION: 1. Probable high-grade stenosis distal left vertebral artery. No flow seen in the distal right vertebral artery proximal to the basilar artery. Diminished flow in the basilar artery. Both carotid arteries are patent. Percent stenosis is calculated using the diameter of the stenotic region over the diameter of the normal distal internal carotid artery Assessment and Plan - Plan This is a 67-year-old male patient with: Acute posterior CVA History of CVA - MRI showed acute infarct in the posterior circulation on the left side and left cerebellar hemisphere and left occipital lobe - MRA showed no flow identified in the distal right vertebral artery with atherosclerotic changes - Aspirin/Plavix from home. - Neurology consulted, appreciate input and recommendations. Pending Eliquis 5 mg twice daily. Will start. DC Plavix. - ECHO pending. Continue telemetry. - Requested for Loop recorder interrogation. - Speech therapy has seen patient, placed on diabetic diet. No dysphagia. - Continue PT efforts. Diabetes mellitus - Sliding-scale insulin, cover as needed. - Monitor blood glucose. Hypertension/hyperlipidemia - Continue home medications. - Neurology BP goal 120/80. - Continue statin. DVT Prophylaxis: SCDs. Eliquis.
[2018-02-13 17:47] LABS: Hemoglobin A1c 6.7 % (4.3-6.0)
[2018-02-14] MEDS ORDERED: Carvedilol 12.5 MG Tablet PO SCH (00:45)
[2018-02-14] MEDS: Aspirin 325 MG Tablet PO SCH (08:13)
[2018-02-14] MEDS: Carvedilol 12.5 MG Tablet PO SCH ×2 (08:13→20:36)
[2018-02-14] MEDS: Furosemide 20 MG Tablet PO SCH (08:14)
[2018-02-14] MEDS: amLODIPine 10 MG Tablet PO SCH (08:14)
[2018-02-14] MEDS: Sod Chloride 0.9% Inj 1,000 ML IV.CONT SCH ×2 (08:16→20:36)
[2018-02-14] MEDS: Insulin NovoLOG Aspart Correctional Sugar Inj SQ SCH ×4 (08:18→20:36)
[2018-02-14 11:30] LABS: Baso % (Auto) 0.4 % (0.0-2.0); Eos # (Auto) 0.1 th/mm3 (0.0-0.4); Hematocrit 46.6 % (39.0-51.0); Hemoglobin 15.7 gm/dL (13.0-17.0); Lymph # (Auto) 1.3 th/mm3 (1.0-4.8); Lymph % (Auto) 20.8 % (9.0-44.0); Mean Corpuscular HGB Conc 33.6 % (32.0-36.0); Mean Corpuscular Hemoglobin 30.9 pg (27.0-34.0); Mean Corpuscular Volume 91.9 fL (80.0-100.0); Mean Platelet Volume 8.3 fL (7.0-11.0); Mono # (Auto) 0.5 th/mm3 (0.0-0.9); Mono % (Auto) 7.5 % (0.0-8.0); Neut # (Auto) 4.5 th/mm3 (1.8-7.7); Neut % (Auto) 69.3 % (16.0-70.0); Platelet Count 226 th/mm3 (150-450); Red Blood Count 5.07 mil/mm3 (4.50-5.90); Red Cell Distribution Width 14.3 % (11.6-17.2); White Blood Count 6.5 th/mm3 (4.0-11.0)
[2018-02-14 11:47] LABS: Albumin 3.5 g/dL (3.4-5.0); Anion Gap 11 meq/L (5-15); Aspartate Aminotransferase 10 U/L (15-37); Blood Urea Nitrogen 13 mg/dL (7-18); Calcium 9.1 mg/dL (8.5-10.1); Carbon Dioxide 24.1 meq/L (21.0-32.0); Chloride 106 meq/L (98-107); Glomerular Filtration Rate 73 mL/min (>89); Glucose,Random 211 mg/dL (74-106); Potassium 3.7 meq/L (3.5-5.1); Sodium 141 meq/L (136-145)
[2018-02-14 11:48] LABS: Alanine Aminotransferase 19 U/L (12-78)
[2018-02-14 11:50] LABS: Alkaline Phosphatase 101 U/L (45-117)
--- NOTE | 2018-02-14 15:08 | P.PNIM ---
Subjective Interval history: Patient has had some improvement in his vision though he feels his vision is not back to baseline. He no longer complains of dizziness. No headaches. Echocardiogram pending. Physical Exam Vital signs: Vital Signs 02/13/18 16:32 02/13/18 17:00 02/13/18 20:00 Temperature 98.2 F Pulse Rate 78 80 Respiratory Rate 18 Blood Pressure 183/103 H Pulse Oximetry 100 98 02/13/18 20:10 02/13/18 22:07 02/13/18 22:40 Temperature 98.4 F Pulse Rate 85 59 L Respiratory Rate 18 Blood Pressure 200/108 H 178/98 H Pulse Oximetry 97 02/14/18 00:15 02/14/18 03:45 02/14/18 08:00 Temperature 98.7 F 98.2 F 98 F Pulse Rate 80 63 69 Respiratory Rate 17 17 17 Blood Pressure 168/89 H 203/94 H Pulse Oximetry 98 95 95 02/14/18 09:47 02/14/18 10:00 02/14/18 12:00 Temperature 97.3 F L Pulse Rate 55 L Respiratory Rate 18 Blood Pressure 132/69 145/76 H Pulse Oximetry 93 L 96 02/14/18 13:24 02/14/18 13:25 02/14/18 14:08 Temperature Pulse Rate 60 79 Respiratory Rate Blood Pressure Pulse Oximetry 96 Intake & Output 02/13/18 02/14/18 02/14/18 18:59 06:59 18:59 Intake Total 1000 / 1000 2238 / 2238 Output Total 1200 / 1200 Balance 1000 / 1000 1038 / 1038 Weight 124.3 kg Intake: IV 1000 / 1000 1000 / 1000 NS Inj 1,000 ML @ 70 mls/hr IV. 1000 / 1000 1000 / 1000 CONT .[id number] [facility] Rx#:[id number] Oral 900 / 900 Other 338 / 338 Output: Urine 1200 / 1200 Other: Date of Last Bowel Movement 02/13/18 02/13/18 # Bowel Movements 1 Narrative: GENERAL: NAD, A&Ox3 HEAD: Normocephalic. NECK: Supple, trachea midline. No lymphadenopathy. EYES: No scleral icterus. No injection or drainage. CARDIOVASCULAR: Regular rate and rhythm without murmurs, gallops, or rubs. RESPIRATORY: Breath sounds equal bilaterally. No accessory muscle use. GASTROINTESTINAL: Abdomen soft, non-tender, nondistended. MUSCULOSKELETAL: No cyanosis, or edema. SKIN: Warm and dry. NEURO: No focal neurological deficits. Bilateral visual deficit. Results - Labs CBC & Chem 7: 02/14/18 10:40 02/14/18 10:40 Laboratory Results - last 24 hr 02/13/18 02/13/18 02/13/18 07:05 17:09 21:05 WBC RBC Hgb Hct MCV MCH MCHC RDW Plt Count MPV Neut % (Auto) Lymph % (Auto) [place] % (Auto) Eos % (Auto) Baso % (Auto) Neut # (Auto) Lymph # (Auto) [place] # (Auto) Eos # (Auto) Baso # (Auto) WBC Differential Differential Comment Sodium Potassium Chloride Carbon Dioxide Anion Gap BUN Creatinine Estimated GFR POC Glucose 126 H 149 H Random Glucose Hemoglobin A1c 6.7 H Calcium Total Bilirubin AST ALT Alkaline Phosphatase Total Protein Albumin 02/14/18 02/14/18 02/14/18 08:18 10:40 10:40 WBC 6.5 RBC 5.07 Hgb 15.7 Hct 46.6 MCV 91.9 MCH 30.9 MCHC 33.6 RDW 14.3 Plt Count 226 MPV 8.3 Neut % (Auto) 69.3 Lymph % (Auto) 20.8 [place] % (Auto) 7.5 Eos % (Auto) 2.0 Baso % (Auto) 0.4 Neut # (Auto) 4.5 Lymph # (Auto) 1.3 [place] # (Auto) 0.5 Eos # (Auto) 0.1 Baso # (Auto) 0.0 WBC Differential . Differential Comment Auto diff final Sodium 141 Potassium 3.7 Chloride 106 Carbon Dioxide 24.1 Anion Gap 11 BUN 13 Creatinine 1.20 Estimated GFR 73 L POC Glucose 148 H Random Glucose 211 H Hemoglobin A1c Calcium 9.1 Total Bilirubin 1.3 H AST 10 L ALT 19 Alkaline Phosphatase 101 Total Protein 7.0 Albumin 3.5 02/14/18 12:33 WBC RBC Hgb Hct MCV MCH MCHC RDW Plt Count MPV Neut % (Auto) Lymph % (Auto) [place] % (Auto) Eos % (Auto) Baso % (Auto) Neut # (Auto) Lymph # (Auto) [place] # (Auto) Eos # (Auto) Baso # (Auto) WBC Differential Differential Comment Sodium Potassium Chloride Carbon Dioxide Anion Gap BUN Creatinine Estimated GFR POC Glucose 203 H Random Glucose Hemoglobin A1c Calcium Total Bilirubin AST ALT Alkaline Phosphatase Total Protein Albumin Assessment and Plan - Plan 67-year-old male admitted secondary to acute CVA with visual deficit and dizziness Acute posterior CVA History of CVA Dizziness has resolved Visual deficits have shown improvement Continue aspirin Continue Eliquis Continue physical therapy Continue telemetry Echocardiogram pending Neurology following Diabetes mellitus type 2 Follow blood sugars Insulin sliding scale Diabetic diet Hypertension Continue baseline treatment Follow blood pressures Adjust treatments as needed Hyperlipidemia Continue present treatment Follow as an outpatient DVT prophylaxis Rachelis and SCDs
[2018-02-15] MEDS: Insulin NovoLOG Aspart Correctional Sugar Inj SQ SCH ×2 (09:19→13:09)
[2018-02-15] MEDS: Carvedilol 12.5 MG Tablet PO SCH (09:23)
[2018-02-15] MEDS: Aspirin 325 MG Tablet PO SCH (09:24)
[2018-02-15] MEDS: Furosemide 20 MG Tablet PO SCH (09:24)
[2018-02-15] MEDS: amLODIPine 10 MG Tablet PO SCH (09:24)
--- NOTE | 2018-02-15 13:12 | P.DS ---
Date of admission: 02/12/18 19:26 Primary care physician: Physician [facility] Brief History from admission: 67-year-old male with a past medical history significant for previous CVA, hypertension, hyperlipidemia and diabetes mellitus presents to the emergency department for the evaluation of confusion and visual problems. The patient reports that yesterday he became confused having difficulty with his short-term memory. He also reports visual acuity issues where everything was blurry and bright. The patient also reports dizziness. He states his symptoms persisted to today and he came to the emergency department for further evaluation. The patient reports his visual symptoms have resolved at this time. He denies any chest pain or shortness of breath. No abdominal pain. No nausea/vomiting/ diarrhea. Walks to the right. No fevers/chills. DS: Medications - Discharge Medications Prescriptions: apixaban [Eliquis] 5 mg PO BID #60 tab aspirin 325 mg PO DAILY #30 tab DS: Summary Hospital Course: Mr. Guevara is a 67-year-old male. He has a previous history of CVA. He came in the hospital secondary to dizziness and visual changes. He was found to have a posterior CVA. Through time he has had improvement in his dizziness. His vision is still compromised but has been improving through time. Adjustments in his treatments have been made which include addition of Eliquis and an increase in his dose of aspirin. This will replace previous low-dose aspirin and Plavix. At this point he is functional and safe for discharge home. Is recommended not to drive. Medically stable and cleared for discharge home today after echocardiogram completed. - Time Spent with Patient Total time spent providing and/or coordinating discharge services: - Quality: VTE Deep Vein Thrombosis/Pulmonary Embolism Present on Admission: No Exam Vital signs: Vital Signs 02/14/18 13:24 02/14/18 13:25 02/14/18 14:08 Temperature Pulse Rate 60 79 Respiratory Rate Blood Pressure Pulse Oximetry 96 02/14/18 16:00 02/14/18 20:00 02/15/18 00:00 Temperature 97.3 F L 98.0 F 97.8 F Pulse Rate 61 59 L 64 Respiratory Rate 18 17 17 Blood Pressure 139/73 186/108 H 158/89 H Pulse Oximetry 96 97 97 02/15/18 01:47 02/15/18 04:00 02/15/18 08:00 Temperature 97.4 F L 98.1 F Pulse Rate 70 70 Respiratory Rate 18 17 20 Blood Pressure 155/100 H 153/72 H Pulse Oximetry 99 97 02/15/18 09:35 02/15/18 12:00 Temperature 97.7 F Pulse Rate 56 L Respiratory Rate 20 Blood Pressure 126/73 Pulse Oximetry 99 96 Intake & Output 02/14/18 02/15/18 02/15/18 18:59 06:59 18:59 Intake Total 1350 / 1350 Output Total 750 / 750 Balance 600 / 600 Weight 125.1 kg Intake: IV 1000 / 1000 NS Inj 1,000 ML @ 70 mls/hr IV. 1000 / 1000 CONT .[id number] [facility] Rx#:[id number] Oral 350 / 350 Output: Urine 750 / 750 Other: # Voids 1 2 Date of Last Bowel Movement 02/13/18 Results Procedures completed during hospitalization: none Labs on day of discharge: Labs from last 24 hours 02/15/18 02/15/18 02/14/18 12:03 07:56 20:32 POC Glucose 181 H 152 H 185 H 02/14/18 17:45 POC Glucose 186 H - Impressions ITS Impressions Head CT 02/12/18 17:30 CONCLUSION: 1. Multiple evolving infarcts as above without hemorrhage or significant mass effect. Head MRI 02/12/18 17:30 CONCLUSION: 1. Acute infarcts predominantly in the posterior circulation on the left side measuring up to about 4 cm in the left cerebellar hemisphere and 5 centimeters in the left occipital lobe with additional small punctate infarcts in the left periventricular deep white matter, posterior aspect of corpus callosum and right cerebellar hemisphere. Head MRA 02/12/18 18:13 CONCLUSION: 1. No flow identified in the distal right vertebral. 2. Atherosclerotic irregularity with diminished flow in the basilar artery and at least moderate stenosis of both posterior cerebral arteries. 3. Atherosclerotic changes suspected in the distal middle cerebral arteries bilaterally with mild to moderate stenosis suspected on the right and at least moderate stenosis on the left. No discrete aneurysm identified. Neck MRA 02/12/18 18:13 CONCLUSION: 1. Probable high-grade stenosis distal left vertebral artery. No flow seen in the distal right vertebral artery proximal to the basilar artery. Diminished flow in the basilar artery. Both carotid arteries are patent. Percent stenosis is calculated using the diameter of the stenotic region over the diameter of the normal distal internal carotid artery Discharge Plan - Discharge Disposition Patient Disposition: W/Home Health Service - Discharge Condition Condition: Stable - Discharge Details Anticipated Discharge Date: 02/15/18 - Physicians Team Primary Care Provider: [facility] Attending Provider: En Feng Other Providers: Kylie Cárdenas MD ; Dipak Paul MD
--- NOTE | 2018-02-15 13:34 | P.DCO ---
- Physical Therapy Order: Evaluate and treat, Improve ambulation, Strength and gait training - Home Health Nursing Order: Medical education, Nursing assessment with vital signs - Certification I have seen patient Rafi Geuvara on 02/15/18. My clinical findings support the need for the requested home health care services because: Limited mobility due to disease progression, Limited ability to care for self I certify that my clinical findings support that this patient is homebound because: Unsafe to leave home unassisted, Unable to use public transportation
--- NOTE | 2018-02-15 17:16 | ECHRPT ---
Indication: CVA/TIA CONCLUSIONS Normal left ventricular size. Wall thickness is measured at the upper limits of normal. Low normal to mildly reduced left ventricular systolic function with estimated ejection fraction of 45-50%. No segmental wall motion abnormalities. Trace mitral valve regurgitation. The estimated pulmonary arterial pressure is 35 mmHg. There is trace tricuspid valve regurgitation. BP: / HR: Rhythm: MEASUREMENTS (Male / Female) Normal Values Technical Quality: 2D ECHO LV Diastolic Diameter PLAX 5.1 cm 4.2 - 5.9 / 3.9 - 5.3 cm LV Systolic Diameter PLAX 4.2 cm IVS Diastolic Thickness 1.2 cm 0.6 - 1.0 / 0.6 - 0.9 cm LVPW Diastolic Thickness 1.0 cm 0.6 - 1.0 / 0.6 - 0.9 cm LV Relative Wall Thickness 0.4 RV Internal Dim ED PLAX 3.0 cm LA Systolic Diameter LX 3.9 cm 3.0 - 4.0 / 2.7 - 3.8 cm M-MODE Aortic Root Diameter MM 2.8 cm AV Cusp Separation MM 2.2 cm DOPPLER Mitral E Point Velocity 62.2 cm/s Mitral A Point Velocity 62.2 cm/s Mitral E to A Ratio 1.0 TR Peak Velocity 251.0 cm/s TR Peak Gradient 25.2 mmHg Right Atrial Pressure 10.0 mmHg Pulmonary Artery Systolic Pressu 35.2 mmHg Right Ventricular Systolic Press 35.2 mmHg FINDINGS LEFT VENTRICLE Normal left ventricular size. Wall thickness is measured at the upper limits of normal. Low normal to mildly reduced left ventricular systolic function with estimated ejection fraction of 45-50%. No segmental wall motion abnormalities. RIGHT VENTRICLE Normal right ventricular size and systolic function. LEFT ATRIUM The left atrial size is normal. RIGHT ATRIUM The right atrial size is normal. ATRIAL SEPTUM Normal atrial septal thickness without atrial level shunting by limited color doppler interrogation. AORTA The aortic root and proximal ascending aorta are normal in size on limited imaging. MITRAL VALVE Trace mitral valve regurgitation. AORTIC VALVE Trileaflet aortic valve. No aortic valve stenosis or regurgitation. TRICUSPID VALVE The estimated pulmonary arterial pressure is 35 mmHg. There is trace tricuspid valve regurgitation. PULMONARY VALVE No pulmonary valve regurgitation or stenosis. VESSELS The inferior vena cava is normal in size. PERICARDIUM No pericardial effusion. Nestor Gibson MD (Electronically Signed) Final Date:15 February 2018 17:14
== END 2018-02-15 18:12 | disposition home health service (06) ==
LOC: NEPD 15:36 → NEDA 19:26 → N05 22:33
PROVIDERS: ADMIT Hospitalist; ATTEND Hospitalist